=== PATIENT | female | born 1965 | race Caucasian/White ===

== ENCOUNTER → 2016-11-01 | Outpatient (CLI) | payer BC ==
--- NOTE | 2016-11-01 11:16 | CR ---
EXAMINATION: Left wrist HISTORY: Pain COMPARISON: None TECHNIQUE: 3 views FINDINGS/IMPRESSION: There is no acute osseous abnormality, dislocation, or fracture. Bone mineraliz ation and joint spaces appear normal. The radiocarpal alignment is preserved.
== END ==
LOC: MW.CHORTHO 07:44
PROVIDERS: ATTEND Orthopaedic Surgery
DX: M25.532 Pain in left wrist (principal)
CPT/HCPCS: 73110-26-LT; 73110-LT

== ENCOUNTER 2018-10-24 06:47 | Day surgery (SDC) | payer BC ==
[2018-10-24 07:27] VITALS: BP 120/62
[2018-10-24] MEDS ORDERED: Octyl 2-Cyanoacrylate 1 Tube ONE (07:34)
[2018-10-24] MEDS ORDERED: Dexamethasone/Tobramycin 0.1-0.3% Ophth Susp 2.5 ML Bottle ONE (07:34)
[2018-10-24] MEDS ORDERED: Bupivacaine 0.25%/EPINEPHrine 1:200,000 10 ML SDV ONE (07:34)
[2018-10-24] MEDS ORDERED: Tetracaine HCl/PF 0.5% 4 ML Bottle ONE (07:35)
--- NOTE | 2018-10-24 07:41 | PCM.PREANE ---
Preanesthetic Assessment - Anesthesia/Transfusion/Family Hx Anesthesia History: Prior Anesthesia Without Reaction Other Type of Anesthesia Reaction Comment: Slow to awaken from tonsillectomy, denies any known family hx: problems Family History of Anesthesia Reaction: No Transfusion History: No Prior Transfusion(s) - Review of Systems General: No Symptoms Pulmonary: No Symptoms Cardiovascular: No Symptoms Gastrointestinal: No Symptoms Neurological: No Symptoms Other: Reports: None - Physical Assessment NPO Status Date: 10/23/18 O2 Sat by Pulse Oximetry: 98 Respiratory Rate: 16 Vital Signs: Last Vital Signs Temp 97.2 F 10/24/18 07:26 Pulse 80 10/24/18 07:26 Resp 16 10/24/18 07:26 BP 120/62 10/24/18 07:26 Pulse Ox 98 10/24/18 07:26 Height: 5 ft 7 in Weight: 71.668 kg ASA Class: 2 Mental Status: Alert & Oriented x3 Airway Class: Mallampati = 2 Dentition: Reports: Normal Dentition ROM/Head Extension: Full Lungs: Clear to Auscultation, Normal Respiratory Effort Cardiovascular: Regular Rate, Regular Rhythm - Allergies Allergies/Adverse Reactions: Allergies Allergy/AdvReac Type Severity Reaction Status Date / Time Cephalosporins Allergy Hives Verified 10/20/18 12:18 Penicillins Allergy Hives Verified 10/20/18 12:18 - Blood Blood Available: No - Anesthesia Plan Pre-Op Medication Ordered: None - Acknowledgements Anesthesia Type Planned: MAC Pt an Appropriate Candidate for the Planned Anesthesia: Yes Alternatives and Risks of Anesthesia Discussed w Pt/Guardian: Yes Pt/Guardian Understands and Agrees with Anesthesia Plan: Yes Additional Comments: PMH: smoker, HS1 eruption upper lip x2-3days PLAN: MAC PreAnesthesia Questionnaire HEENT History: Reports: Other (See Below) Other HEENT History: reading glasses Cardiovascular History: Reports: Other (See Below) Other Cardiovascular History: "my blood pressure tends to run low" Respiratory History: Reports: None Gastrointestinal History: Reports: None Genitourinary History: Reports: None DEMI CHEF History: Reports: Musculoskeletal History: Reports: None Neurological History: Reports: None Other Neuro History: Stress Headaches Psychiatric History: Reports: None Endocrine/Metabolic History: Reports: None Hematologic History: Reports: None Immunologic History: Reports: None Oncologic (Cancer) History: Reports: None Dermatologic History: Reports: None - Past Surgical History Head Surgeries/Procedures: Reports: None HEENT Surgical History: Reports: Tonsillectomy Other HEENT Surgeries/Procedures: Tonsillectomy age 4 yrs Respiratory Surgical History: Reports: None GI Surgical History: Reports: Colonoscopy Female Surgical History: Reports: Section, Tubal Ligation Endocrine Surgical History: Reports: None Neurological Surgical History: Reports: None Musculoskeletal Surgical History: Reports: None Oncologic Surgical History: Reports: None Dermatological Surgical History: Reports: None - SUBSTANCE USE Smoking Status *Q: Current Every Day Smoker Tobacco Use Within Last Twelve Months: Cigarettes Recreational Drug Use History: No - HOME MEDS Home Medications: Home Meds . [No Known Home Meds] 10/20/18 [History] - CURRENT (IN HOUSE) MEDS Current Meds: Current Medications Hydrocodone Bitart/Acetaminophen ([place] 325-5 Mg) 1 tab PO Q4H PRN PRN Reason: Pain Bupivacaine HCl/Epinephrine Bitart (Marcaine 0.25%/Epinephrine 1:200,000) 10 ml INJECT ONETIME ONE Stop: 10/24/18 08:01 Clindamycin Phosphate 600 mg/ (Premix) 50 mls @ 150 mls/hr IV ONETIME ONE Stop: 10/24/18 08:19 Lactated Ringer's (Ringers, Lactated) 1,000 mls @ 125 mls/hr IV ASDIRECTED [facility] Last Admin: 10/24/18 07:31 Dose: 125 mls/hr Discontinued Medications Bupivacaine HCl/Epinephrine Bitart (Marcaine 0.25%/Epinephrine 1:200,000) Confirm Administered Dose 10 ml .ROUTE .STK-MED ONE Stop: 10/24/18 07:35 Octyl Cyanoacrylate (Dermabond Advance) Confirm Administered Dose 1 applic .ROUTE .STK-MED ONE Stop: 10/24/18 07:35 Tetracaine HCl (Tetracaine 0.5% Steri-Unit Mechelle) Confirm Administered Dose 4 ml .ROUTE .STK-MED ONE Stop: 10/24/18 07:36 Tobramycin/Dexamethasone (Tobradex Ophth Susp) Confirm Administered Dose 2.5 ml .ROUTE .STK-MED ONE Stop: 10/24/18 07:35
[2018-10-24] MEDS ORDERED: fentaNYL 100 MCG/2 ML SDV ONE (07:43)
[2018-10-24] MEDS ORDERED: Propofol 200 MG/20 ML SDV ONE (07:43)
[2018-10-24] MEDS ORDERED: diphenhydrAMINE 50 MG/ML SDV ONE (07:43)
[2018-10-24] MEDS ORDERED: Lidocaine 2% 5 ML SDV ONE (07:43)
[2018-10-24] MEDS ORDERED: Acetaminophen/HYDROcodone 325-5 MG Tab PO PRN (08:00)
[2018-10-24] MEDS ORDERED: Clindamycin Phosphate in D5W 600 MG in Premix Bag 1 BAG IV ONE ×2 (08:00)
[2018-10-24] MEDS ORDERED: Bupivacaine 0.25%/EPINEPHrine 1:200,000 10 ML SDV INJECT ONE (08:00)
[2018-10-24] MEDS ORDERED: Lactated Ringers 1,000 ML IV SCH (08:00)
--- NOTE | 2018-10-24 16:09 | PCM.SN ---
- Free Text/Narrative Note: The patient has active herpes simplex of the upper lip. Give the elective surgery and risks associated, we will call osvaldo to pharmacy and postpone surgery. All questions answered. She agrees. TH
== END 2018-10-24 08:25 ==
LOC: MW.SDS 06:47
PROVIDERS: ATTEND Plastic Surgery
DX: B00.1 Herpesviral vesicular dermatitis (principal); F17.210 Nicotine dependence, cigarettes, uncomplicated; Z88.0 Allergy status to penicillin; Z88.1 Allergy status to other antibiotic agents; Z53.8 Procedure and treatment not carried out for other reasons
CPT/HCPCS: J3490; J7120; A9270-GY; J1200; J2001; J2704; J3010

== ENCOUNTER 2018-10-31 08:21 | Day surgery (SDC) | payer BC ==
[~2018-10-31 08:21] MED LIST: Acetaminophen/HYDROcodone 325-5 MG Tab PO PRN; Bupivacaine 0.25%/EPINEPHrine 1:200,000 10 ML SDV INJECT ONE; Clindamycin Phosphate in D5W 600 MG in Premix Bag 1 BAG IV ONE; Lactated Ringers 1,000 ML IV SCH; Lidocaine 2% 5 ML SDV ONE; Midazolam 1 MG/ML 2 ML SDV ONE; Propofol 200 MG/20 ML SDV ONE; fentaNYL 100 MCG/2 ML SDV ONE
[2018-10-31] MEDS ORDERED: Meperidine PF 25 MG/ML Syringe IV PRN (08:26)
[2018-10-31] MEDS ORDERED: fentaNYL 100 MCG/2 ML SDV IVPUSH PRN (08:27)
--- NOTE | 2018-10-31 09:43 | PCM.PREANE ---
Preanesthetic Assessment - Anesthesia/Transfusion/Family Hx Anesthesia History: Prior Anesthesia Without Reaction Other Type of Anesthesia Reaction Comment: Slow to awaken from tonsillectomy, denies any known family hx: problems Family History of Anesthesia Reaction: No Transfusion History: No Prior Transfusion(s) Intubation History: Unknown - Review of Systems General: No Symptoms Pulmonary: No Symptoms Cardiovascular: No Symptoms Gastrointestinal: No Symptoms Neurological: No Symptoms Other: Reports: None - Physical Assessment NPO Status Date: 10/30/18 NPO Status Time: 23:00 O2 Sat by Pulse Oximetry: 94 Respiratory Rate: 16 Vital Signs: Last Vital Signs Temp 36.2 C 10/31/18 08:40 Pulse 73 10/31/18 08:40 Resp 16 10/31/18 08:40 BP 104/63 10/31/18 08:40 Pulse Ox 94 L 10/31/18 08:40 Height: 1.7 m Weight: 71.668 kg ASA Class: 2 Mental Status: Alert & Oriented x3 Airway Class: Mallampati = 2 Dentition: Reports: Normal Dentition Thyro-Mental Finger Breadths: 3 Mouth Opening Finger Breadths: 3 ROM/Head Extension: Full Lungs: Clear to Auscultation, Normal Respiratory Effort Cardiovascular: Regular Rate, Regular Rhythm - Allergies Allergies/Adverse Reactions: Allergies Allergy/AdvReac Type Severity Reaction Status Date / Time Cephalosporins Allergy Hives Verified 10/28/18 09:10 Penicillins Allergy Hives Verified 10/28/18 09:10 - Blood Blood Available: No - Anesthesia Plan Pre-Op Medication Ordered: None - Acknowledgements Anesthesia Type Planned: MAC Pt an Appropriate Candidate for the Planned Anesthesia: Yes Alternatives and Risks of Anesthesia Discussed w Pt/Guardian: Yes Pt/Guardian Understands and Agrees with Anesthesia Plan: Yes PreAnesthesia Questionnaire HEENT History: Reports: Other (See Below) (HS1 eruption upper lip x 2-3 days) Other HEENT History: reading glasses Cardiovascular History: Reports: Other (See Below) Other Cardiovascular History: states her BP always runs low Respiratory History: Reports: None Gastrointestinal History: Reports: None Genitourinary History: Reports: None W[employer] EN[employer] TECHNICIAN History: Reports: Musculoskeletal History: Reports: None Neurological History: Reports: Other (See Below) Other Neuro History: has stress headaches Psychiatric History: Reports: None Endocrine/Metabolic History: Reports: None Hematologic History: Reports: None Immunologic History: Reports: None Oncologic (Cancer) History: Reports: None Dermatologic History: Reports: None - Past Surgical History HEENT Surgical History: Reports: Tonsillectomy Other HEENT Surgeries/Procedures: tonsillectomy at age 4 GI Surgical History: Reports: Colonoscopy Female Surgical History: Reports: Section (x2), Tubal Ligation - SUBSTANCE USE Smoking Status *Q: Current Every Day Smoker (down to 5-6 cigarettes per day) Tobacco Use Within Last Twelve Months: Cigarettes Recreational Drug Use History: No - HOME MEDS Home Medications: Home Meds . [No Known Home Meds] 10/20/18 [History] - CURRENT (IN HOUSE) MEDS Current Meds: Current Medications Hydrocodone Bitart/Acetaminophen ([place] 325-5 Mg) 1 tab PO Q4H PRN PRN Reason: Pain Fentanyl (Sublimaze) 50 - 100 mcg IVPUSH Q5M PRN PRN Reason: Pain Stop: 10/31/18 14:27 Lactated Ringer's (Ringers, Lactated) 1,000 mls @ 125 mls/hr IV ASDIRECTED [facility] Last Admin: 10/31/18 08:55 Dose: 125 mls/hr Meperidine HCl (Demerol) 12.5 - 25 mg IV ONETIME PRN PRN Reason: Shivering Stop: 10/31/18 14:59 Discontinued Medications Bupivacaine HCl/Epinephrine Bitart ([place]aine 0.25%/Epinephrine 1:200,000) 10 ml INJECT ONETIME ONE Stop: 10/31/18 08:01 Fentanyl (Sublimaze) Confirm Administered Dose 100 mcg .ROUTE .STK-MED ONE Stop: 10/31/18 07:46 Clindamycin Phosphate 600 mg/ (Premix) 50 mls @ 150 mls/hr IV ONETIME ONE Stop: 10/31/18 08:19 Lidocaine (Xylocaine-Mpf 2%) Confirm Administered Dose 5 ml .ROUTE .STK-MED ONE Stop: 10/31/18 07:45 Midazolam HCl (Versed 1 Mg/Ml) Confirm Administered Dose 2 mg .ROUTE .STK-MED ONE Stop: 10/31/18 07:46 Propofol (Diprivan 20 Ml) Confirm Administered Dose 200 mg .ROUTE .STK-MED ONE Stop: 10/31/18 07:46 Propofol (Diprivan 20 Ml) Confirm Administered Dose 200 mg .ROUTE .[facility]-MED ONE Stop: 10/31/18 07:46
[2018-10-31] MEDS ORDERED: Tetracaine HCl/PF 0.5% 4 ML Bottle ONE (10:26)
[2018-10-31] MEDS ORDERED: Dexamethasone/Tobramycin 0.1-0.3% Ophth Susp 2.5 ML Bottle ONE (10:26)
[2018-10-31] MEDS ORDERED: Bupivacaine 0.25%/EPINEPHrine 1:200,000 10 ML SDV ONE (10:27)
[2018-10-31] MEDS ORDERED: Ondansetron 4 MG/2 ML SDV ONE (11:34)
--- NOTE | 2018-10-31 12:01 | PCM.POSTAN ---
POST ANESTHESIA ASSESSMENT - MENTAL STATUS Mental Status: Alert, Oriented - RESPIRATORY Respiratory Status: Respiratory Rate WNL, Airway Patent, O2 Saturation Stable - CARDIOVASCULAR CV Status: Pulse Rate WNL, Blood Pressure Stable - GASTROINTESTINAL GI Status: No Symptoms - PAIN Pain Score: 0 - POST OP HYDRATION Hydration Status: Adequate & Stable
[2018-10-31 12:45] VITALS: BP 108/63
--- NOTE | 2018-11-01 10:16 | PCM.OPNOTE ---
- General Post-Op/Procedure Note Date of Surgery/Procedure: 10/31/18 Operative Procedure(s): bilateral upper eyelid blepharoplasties for excess skin Pre Op Diagnosis: bilateral upper eyelid dermatochalasis Post-Op Diagnosis: Same Anesthesia Technique: Local, MAC Primary Surgeon: Ambar Balderas Superintendent Plant Protection: Irasema Traylor Complications: None Condition: Good
--- NOTE | 2018-11-02 14:36 | OR ---
SURGEON: SERA LUKE MD DATE OF PROCEDURE: 10/31/2018 PREOPERATIVE DIAGNOSIS: Bilateral upper eyelid dermatochalasis. POSTOPERATIVE DIAGNOSIS: Bilateral upper eyelid dermatochalasis. PROCEDURE: Bilateral upper eyelid blepharoplasties for excess skin weighing down lids. CLEANING STAFF SUPERVISOR: TODD Quintana. REASON FOR AND ROLE OF CLEANING STAFF SUPERVISOR: Retraction, prepping, draping, positioning and closure assistance ANESTHESIA: Local MAC. INDICATIONS: Ms. Torres is a 53-year-old female, seen today in evaluation for bilateral upper eyelid excess skin weighing down lids. She has been previously scheduled last week, but unfortunately had a culture and thus was rescheduled for this week. Risks and benefits were discussed with her including, but not limited to, bleeding, infection, damage to underlying or overlying structures, possible need for future interventions, and possible scarring. PROCEDURE IN DETAIL: After informed consent was obtained and placed on the chart, the patient was brought to the operating theater and laid in the supine position. After adequate local MAC anesthesia was obtained, the area was prepped and draped and a time-out was completed to confirm side and site. After adequate markings and measurements, the area was injected with local anesthesia and the excess skin was excised in an elliptical fashion. Meticulous hemostasis was obtained using Bovie electrocautery with a wet lap over the nasal area to prevent any high-risk. Once adequately removed on the right side, the skin was closed in a deep 4-0 Monocryl stitch and a running 6-0 Prolene for the skin. The ends were Steri- Stripped in place. The opposite eye was then completed with a symmetric dissection and closed with deep Monocryl, and a running 6-0 Prolene for the skin. Once Steri-Strips in place, the patient was transferred to the PACU in stable condition, and TobraDex drops were placed in the eyes and on the incision itself. The patient tolerated this well. All counts and needles were correct at the end of the case. FOLLOWUP INSTRUCTIONS: The patient will see us in clinic in one week, sooner if any problems, questions, or concerns. Prescription was given for pain control if needed. AYDIN / HALEY /[id number]
== END 2018-10-31 13:00 | disposition home or self-care (01) ==
LOC: MW.SDS 08:21
PROVIDERS: ATTEND Plastic Surgery
DX: H02.834 Dermatochalasis of left upper eyelid (principal); H02.831 Dermatochalasis of right upper eyelid; F17.210 Nicotine dependence, cigarettes, uncomplicated; Z88.1 Allergy status to other antibiotic agents; Z88.0 Allergy status to penicillin
CPT/HCPCS: 15823; A9270; J2001; J2250; J2405; J2704; J3010; J3490; J7120

== ENCOUNTER 2023-02-01 10:06 | Day surgery (SDC) | payer BC ==
[~2023-02-01 10:06] MED LIST changes: -Acetaminophen/HYDROcodone 325-5 MG Tab PO PRN; -Bupivacaine 0.25%/EPINEPHrine 1:200,000 10 ML SDV INJECT ONE; -Clindamycin Phosphate in D5W 600 MG in Premix Bag 1 BAG IV ONE; -Lidocaine 2% 5 ML SDV ONE; -Midazolam 1 MG/ML 2 ML SDV ONE; -Propofol 200 MG/20 ML SDV ONE; +Sodium Chloride 0.9% 10 ML Syringe FLUSH PRN; +Sodium Chloride 0.9% 2.5 ML Syringe FLUSH PRN; +Sodium Chloride 0.9% 20 ML SDV IV PRN; -fentaNYL 100 MCG/2 ML SDV ONE
[2023-02-01] MEDS ORDERED: Ondansetron 4 MG/2 ML SDV IVPUSH PRN (10:50)
[2023-02-01] MEDS ORDERED: Propofol 200 MG/20 ML SDV ONE (12:09)
[2023-02-01] MEDS ORDERED: Midazolam 1 MG/ML 2 ML SDV ONE (12:09)
[2023-02-01] MEDS ORDERED: fentaNYL 100 MCG/2 ML SDV ONE (12:09)
[2023-02-01 14:34] VITALS: BP 95/56; PULSE 56
== END 2023-02-01 13:45 | disposition home or self-care (01) ==
LOC: MW.SDS 10:06
PROVIDERS: ATTEND Surgery
DX: Z12.11 Encounter for screening for malignant neoplasm of colon (principal); K29.50 Unspecified chronic gastritis without bleeding; K63.5 Polyp of colon; F17.210 Nicotine dependence, cigarettes, uncomplicated; K21.9 Gastro-esophageal reflux disease without esophagitis; M54.50 Low back pain, unspecified; G89.29 Other chronic pain; Z88.0 Allergy status to penicillin; Z88.1 Allergy status to other antibiotic agents; Z79.899 Other long term (current) drug therapy; Z98.890 Other specified postprocedural states
CPT/HCPCS: 43239; 45380; J2250; J2405; J2704; J7120; 00813; J3010